=== PATIENT | female | born 1995 | race Caucasian/White ===

== ENCOUNTER 2016-11-23 11:03 | Inpatient (IN) ==
[~2016-11-23 11:03] MED LIST: *HR* Nalbuphine 20 MG/ML AMPUL IVP PRN; Famotidine 20 MG/2 ML VIAL IVP PRN; Metoclopramide 10 MG/2 ML VIAL IVP PRN; Ondansetron 4 MG/2 ML VIAL IVP PRN; Oxytocin 20 units/ LR 1000 mL 20 UNIT/1,000 ML BAG IVC SCH; Ringers Solution, Lactated 1,000 ML IVC SCH
--- NOTE | 2016-11-23 11:29 | OB/GYN History & Physical ---
Date of Encounter: 11/23/16 Time of Encounter: 11:23 Assessment and Plan (1) 40 weeks gestation of Current visit: Yes Status: Acute (2) PROM with onset of labor more than 24 hours following rupture Current visit: Yes Status: Acute Qualifiers: PROM gestational age: full term Qualified Code(s): O42.12 - Full-term premature rupture of membranes, onset of labor more than 24 hours following rupture History of Present Illness HPI: Ms. Miller is a 21 year old female with EDC 11/23/16 at 40 weeks who presents to L&D with history of leaking fluid since yesterday and abdominal cramping/contractions. PN record reviewed, no risk other than late transfer of care. GBS screen negative, Rh positive, Rubella immune. Cx in office recently. Past Med Surg Social Fam HX - Past Medical History Medical history: asthma Psychiatric history: no psych history - Social History Smoking Status: Never smoker Alcohol use: none Drug use: none - Family History Mother Living Status: Still Living Obstetrical History - Pregnancies : 1 Medications and Allergies Albuterol Inhaler 1 puff IH PRN PRN 11/23/16 [History] Loratadine [Allergy Relief] 10 mg PO DAILY 11/23/16 [History] Vitamins 1 / PO DAILY 11/23/16 [History] Allergies No Known Allergies Allergy (Verified 11/23/16 10:58) Exam - Vital Signs Vital signs: Initial Vital Signs Temp Pulse Resp 98.8 F 86 154 11/23/16 10:52 11/23/16 10:52 11/23/16 10:52 - Constitutional Constitutional: well developed, well nourished, mild distress - HEENT HEENT: Mucus Membranes Moist - Abdomen Abdomen: Present: gravid, non tender - Cervix Dilation: 3 (3-4) Effacement: 90 Station: -1 Results All other labs normal. - VTE Reasons for not Prescribing Prophylaxis: Treatment not Indicated - Low risk for VTE
[2016-11-23] MEDS ORDERED: D5% in Lactated Ringers 1,000 ML IVC SCH (11:30)
[2016-11-23 11:36] LABS: Basophils # 0.1 K/mcL (0.0-0.2); Basophils % 0.3 %; Eosinophils # 0.1 K/mcL (0.0-0.6); Eosinophils % 0.8 %; Hematocrit 34.4 % (35.3-44.9); Hemoglobin 11.7 g/dL (11.5-15.4); Immature Granulocytes % 1.4 % (0-4); Lymphocytes # 1.7 K/mcL (0.6-4.6); Mean Corpuscular Volume 88.2 fL (83.0-100.0); Mean Platelet Volume 10.6 fL (9.4-12.4); Monocytes # 0.9 K/mcL (0.0-1.3); Monocytes % 5.3 %; Neutrophils # 13.7 K/mcL (1.6-8.9); Platelet Count 266 K/mcL (140-400); Red Cell Distribution Width 13.4 % (11.5-14.5); Segmented Neutrophils % 82.2 %
--- NOTE | 2016-11-23 14:17 | OB Labor Progress Note ---
Date of Encounter: 11/23/16 Time of Encounter: 14:15 Labor Progress Note - Subjective Subjective: Contractions becoming more uncomfortable. Denies any leakage of fluid since arrival. - Vital Signs Vital Signs: VSS, BP elevated due to discomfort - Cervix Cervix: 4-5/90%/VTX/0. Membranes palpated. VTX confirmed with bedside U/S - Heart Tones Heart Tones: Reactive - [place]: Contractions every 2-4 minutes - Interventions Interventions: AROM performed with amnihook. No fluid noted. IUPC inserted without difficulty. - Plan Plan: Continue augmentation
[2016-11-23] MEDS ORDERED: EPHEDrine 50 MG/ML VIAL IVP PRN (14:29)
[2016-11-23] MEDS ORDERED: Ringers Solution, Lactated 500 ML IVC ONE (14:29)
[2016-11-23] MEDS ORDERED: Epidural Premix (fent/bupiv) 110 ML EP SCH (14:30)
[2016-11-23] MEDS ORDERED: Epidural Premix (fent/bupiv) 110 ML EP ONE (14:32)
--- NOTE | 2016-11-23 15:13 | Anesthesia Evaluation PreOp ---
Date of Encounter: 11/23/16 Time of Encounter: 15:11 - Past History Planned Operation: PHYLLIS Cardiac History: Denies any Significant Hx Pulmonary History: Asthma (childhood) SECURITY STRATEGIST History: Denies Any Significant HX Other Medical History: Denies Any Significant HX Anesthesia History: No Prior Anesthetic Complications : Yes (40) Alcohol Use: none Drug use: none Medications and Allergies Albuterol Inhaler 1 puff IH PRN PRN 11/23/16 [History] Loratadine [Allergy Relief] 10 mg PO DAILY 11/23/16 [History] Vitamins 1 / PO DAILY 11/23/16 [History] Allergies No Known Allergies Allergy (Verified 11/23/16 10:58) - Meds/Allergy Pre-op Review Medications Reviewed: Yes Allergies Reviewed: Yes Beta Blockers on Current Med List: No Anesthesia Results - Labs 11/23/16 11:15 Anesthesia Exam 141/96, hr 98, 99% Weight: 77.6kg NPO (# of Hours): 6 Pain Scale: 9 Pain Scale Used: Numeric (1 - 10) - HEENT Pupil (Motor): Pupils equal Mallampati: I Teeth: Normal Oral Opening: Greater than 3 - SECURITY STRATEGIST LOC: Oriented SECURITY STRATEGIST Motor: Normal RUE, Normal LUE, Normal RLE, Normal LLE, Normal Face SECURITY STRATEGIST Sensory: Normal: RUE, LUE, RLE, LLE, Face - Cardiac Rhythm: Regular Murmur: None JVD: No Carotid Bruit: No - Pulmonary Breath Sounds: bilateral Clear Respiratory Effort: Symmetrical Anesthesia Assess/Plan ASA Score: 2 Modified Sugar Scale for Level of Consciousness: Cooperative, oriented, and tranquil Anesthetic Plan: General (plan b), Regional (plan a) Autologous Blood: Yes Monitoring Plan: Standard Monitors
--- NOTE | 2016-11-23 15:16 | Anesthesia Procedures ---
Date of Encounter: 11/23/16 Time of Encounter: 15:14 Procedures: Anesthesia - Epidural/Spinal Patient ID/Chart reviewed: Yes Patient examined: Yes OB Eval: Gestational age: 40 OB Eval: : 1 OB Eval: Hx Para: 0 OB Eval: Dilated at (cm): 4 OB Eval: Contractions: Non-stressed pattern Consent Obtained: Yes Supplemental Oxygen: None/Room Air Site Prep: Aseptic Technique, Sterile prep and drape, Povidone-Iodine 1% Patient position: upright Local Anesthetic: Lidocaine 1% Amount of Local Anesthetic used: 3 Touhy Needle Gauge: 18 Touhy Needle Depth (cm): 6 Catheter Depth at Skin (cm): 15 Test Dose (1.5% Lido + Epi): Volume given (mls): 5 Test Dose Result: Negative Loading Dose: Other: 8mls of epidural pharm bag premix solution Loading Dose Administered: Thru Catheter Infusion Med: 0.125% Bupivacaine w/ 2 mcg/ml Fentanyl Infusion Rate (mls/hr): 12 (3ml q15min pcea) Catheter Secured in Place: Tegaderm, Tape Interspace Used: L3-L4 Loss of Resistance (JAIRO): Yes Blood: No CSF: No Paresthesia: No Procedure: pt tolerated procedure well. no complications. vss. see qs for complete vitals.
[2016-11-23] MEDS ORDERED: Lidocaine 1% 20 ML MDV ONE (18:32)
--- NOTE | 2016-11-23 18:57 | OB/GYN Procedure Note ---
Delivery - Delivery Date: 11/23/16 Provider: Tameka Green Intrapartum events: none Delivery induction: none Delivery augmentation: pitocin Delivery monitor: external FHT, external uterine, internal uterine Anesthesia: epidural Estimated Blood Loss: 400 - Infant (s) A Delivery Date: 11/23/16 Delivery Time: 18:35 Presentation: vertex Route of delivery: Gender: Female Viability: Viable Pounds: 8 Ounces: 0 Weight Gram: 3615 kg at 1 minute: 8 at 5 mins: 9 Shoulder Dystocia: encountered Shoulder Dystocia Maneuvers: Chester maneuver, suprapubic pressure Shoulder dystocia time elapsed: 30 seconds Specimens collected: cord blood Placenta: spontaneous Cord: nuchal cord, 3 umbilical vessels, delivered through nuchal - Repair Episiotomy: none Laceration Description: Perineal - 1st Degree - Complications Delivery complications: none - Disposition Mom disposition: stable in LDR Roby disposition: stable in LDR - Comments Comments: Patient progressed to complete dilatation and had a spontaneous vaginal delivery of a viable female scores were 8 and 9 at 15 minutes respectively, and the infant weighed 8 pounds. A nuchal cord 1 was present the was delivered through this loop of cord. Shoulder dystocia was encountered for approximally 30 seconds responding to suprapubic pressure and Chester maneuver. Placenta delivered spontaneously and appeared to be intact. First-degree perineal laceration was repaired in usual fashion with 3-0 Vicryl suture. All sponge , needle, and instrument counts were reported as correct. Estimated blood loss 400 mL.
[2016-11-23] MEDS ORDERED: Oxytocin 20 units/ LR 1000 mL 20 UNIT/1,000 ML BAG IVC ONE (23:18)
[2016-11-23] MEDS ORDERED: Oxytocin 20 units/ LR 1000 mL 20 UNIT/1,000 ML BAG IV SCH (23:18)
[2016-11-23] MEDS ORDERED: Acetaminophen 325 MG TABLET PO PRN (23:18)
--- NOTE | 2016-11-24 08:54 | Discharge Summary ---
Date of Encounter: 11/24/16 Time of Encounter: 08:52 - Discharge Diagnosis (1) Vaginal delivery Priority: Primary Status: Resolved (2) hypertension Priority: Secondary Status: Acute Comments: [facility] warnings given - Discharge Medications Prescriptions: Ibuprofen [Motrin] 600 mg PO Q6HR PRN #30 tab PRN Reason: Pain Breast Pump [BREAST PUMP] 1 each .ROUTE AD #1 each Home Medications: Albuterol Inhaler 1 puff IH PRN PRN 11/23/16 [History] Loratadine [Allergy Relief] 10 mg PO DAILY 11/23/16 [History] Vitamins 1 / PO DAILY 11/23/16 [History] Breast Pump [BREAST PUMP] 1 each .ROUTE AD #1 each 11/24/16 [Rx] Ibuprofen [Motrin] 600 mg PO Q6HR PRN #30 tab 11/24/16 [Rx] Allergies/Adverse Reactions: Allergies No Known Allergies Allergy (Verified 11/23/16 10:58) Data Procedures and tests throughout hospitalization: Laboratory Tests 11/23/16 11:15 WBC 16.6 H RBC 3.90 Hgb 11.7 Hct 34.4 L MCV 88.2 MCH 30.0 MCHC 34.0 RDW 13.4 Plt Count 266 MPV 10.6 Immature Gran % 1.4 Seg Neutrophils % 82.2 Lymphocytes % 10.0 Monocytes % 5.3 Eosinophils % 0.8 Basophils % 0.3 Neutrophils # 13.7 H Lymphocytes # 1.7 Monocytes # 0.9 Eosinophils # 0.1 Basophils # 0.1 Labs on day of discharge: Labs from last 24 hours 11/23/16 11:15 WBC 16.6 H RBC 3.90 Hgb 11.7 Hct 34.4 L MCV 88.2 MCH 30.0 MCHC 34.0 RDW 13.4 Plt Count 266 MPV 10.6 Immature Gran % 1.4 Seg Neutrophils % 82.2 Lymphocytes % 10.0 Monocytes % 5.3 Eosinophils % 0.8 Basophils % 0.3 Neutrophils # 13.7 H Lymphocytes # 1.7 Monocytes # 0.9 Eosinophils # 0.1 Basophils # 0.1 Date of admission: 11/23/16 11:03 Consults: 11/23/16 23:18 Consult to Computer Network Specialist [CONS] Routine Comment: Vaginal delivery, consult needed Discharging clinician: Sandra Montano Anticipated date of discharge: 11/24/16 - Patient Status Disposition: Home, Self-Care Condition: Good Functional capacity at discharge: independent ambulation Overall status at discharge: patient is progressing back to baseline - Discharge Instructions Follow Up With: Brian Ellis DO [Partnered Physician] - - Diet and Activity Activity: increase activity as tolerated Diet: regular diet Hospital Course Reason for admission: rupture of membranes Delivery: Episiotomy: none Laceration: 1st degree Other procedures: none complications: none Discharge diagnosis: IUP at term delivered [place] baby: female Time Attestation: Total time spent providing and/or coordinating discharge services: Time Spent: Less than 30 minutes Exam - Constitutional Vitals: Temp Pulse Resp BP Pulse Ox 98.2 F 84 18 125/78 97 11/24/16 07:53 11/24/16 07:53 11/24/16 08:28 11/24/16 07:53 11/24/16 07:53 General appearance IM: A&O X 3, pleasant, no acute distress - Respiratory Respiratory exam: Present: CTAB. Absent: respiratory distress - Cardiovascular Cardiovascular exam IM: Present: RRR. Absent: irregular rhythm - GI/Abdominal GI/Abdominal exam IM: normal bowel sounds, soft, no peritoneal signs - Rectal Rectal exam: deferred - Uterine Tone: Firm Uterus Position: 2 Fingers Below Umbilicus - Extremities Exam Extremities exam IM: Present: pedal edema, warm. Absent: calf tenderness - Neurological Exam Neurological exam: alert, no focal deficits (DTRs 3+, no clonus)
[2016-11-24] MEDS ORDERED: Prenatal Vit/FA 1 EACH TABLET PO SCH (09:00)
[2016-11-24 09:18] LABS: Basophils % 0.2 %; Eosinophils # 0.1 K/mcL (0.0-0.6); Eosinophils % 0.3 %; Hematocrit 33.1 % (35.3-44.9); Hemoglobin 11.3 g/dL (11.5-15.4); Immature Granulocytes % 0.8 % (0-4); Lymphocytes # 1.9 K/mcL (0.6-4.6); Lymphocytes % 9.2 %; Mean Corpuscular HGB Conc 34.1 g/dL (31.6-35.5); Mean Corpuscular Hemoglobin 30.1 pg (28.0-33.3); Mean Corpuscular Volume 88.3 fL (83.0-100.0); Mean Platelet Volume 10.3 fL (9.4-12.4); Monocytes % 4.6 %; Platelet Count 236 K/mcL (140-400); Red Blood Count 3.75 M/mcL (3.82-4.97); Red Cell Distribution Width 13.7 % (11.5-14.5); Segmented Neutrophils % 84.9 %
[2016-11-24 09:38] LABS: Alanine Aminotransferase 12 Units/L (0-55); Aspartate Amino Transferase 31 Units/L (5-34); BUN/Creatinine Ratio 11 (6-26); Blood Urea Nitrogen 7 mg/dL (7-20); Lactate Dehydrogenase 298 Units/L (159-327); Uric Acid 4.8 mg/dL (2.6-6.0); eGFR For African Americans > 60 (> 60); eGFR For Non-African Americans > 60 (> 60)
[2016-11-24] MEDS ORDERED: NIFEdipine XL (24 HR) 60 MG TAB.ER.24 PO SCH (17:00)
[2016-11-24 19:02] VITALS: BP 135/90
== END 2016-11-24 20:25 | disposition home or self-care (01) | DRG 774 ==
LOC: 1NENULAB → 1NENUOBS 21:41